=== PATIENT | male | born 1965 | race Caucasian/White ===

== ENCOUNTER → 2016-08-17 | Outpatient (CLI) | payer OTHER | LOC: PUL 08:36 | DX: R06.02 Shortness of breath (principal) ==

== ENCOUNTER → 2017-11-12 | Outpatient (CLI) | payer OTHER | LOC: CAT 08:08 | DX: I48.91 Unspecified atrial fibrillation (principal); J98.4 Other disorders of lung ==

== ENCOUNTER 2017-11-19 06:50 | Observation (INO) | payer OTHER ==
[~2017-11-19] VITALS: Ht 200.7 cm; Wt 88.5 kg
[2017-11-19] VITALS (7 sets, daily range): BP systolic 104–130; BP diastolic 65–70
--- NOTE | ~2017-11-19 | D ---
[facility] [place] [address] DISCHARGE SUMMARY Name: RENATO COHEN Room #: 210-P [facility] Jordyn Chavira#: [id number] Admission: 11/19/17 Attend Phys: Main Rivas MD Discharge: 11/20/17 Date of : 65 Report #: [id number] THIS REPORT FOR: //name// CC: Beau Rivas DATE OF SERVICE: 11/20/2017 FINAL DIAGNOSES: 1. Atrial fibrillation. 2. Status post atrial fibrillation ablation. 3. Bradycardia. HOSPITAL COURSE: Please see the original H and P for full details. The patient has a history of paroxysmal atrial fibrillation, maintained on flecainide therapy. He had frequent episodes of paroxysmal AFib, associated with fatigue and lightheadedness. He presented electively for an EP procedure. He underwent ablation of the atrial fibrillation by Dr. Main Rivas. He has remained stable overnight. Telemetry monitoring reveals sinus rhythm. He will be discharged home on flecainide and Pradaxa, which he was taking previously. He is scheduled to follow up with Dr. Rivas. <ELECTRONICALLY SIGNED> By: Jose Diallo MD 11/21/17 0854 [id number] [id number] Jose Diallo MD /nt
--- NOTE | ~2017-11-19 | P ---
[facility] [place] [address] PROCEDURE REPORT Name: RENATO COHEN Room #: 210-P [facility] M..#: [id number] Admission: 11/19/17 Attend Phys: Main Rivas MD Discharge: 11/20/17 Date of : 65 Report #: [id number] THIS REPORT FOR: //name// CC: Beau Rivas PREOPERATIVE DIAGNOSIS: Atrial fibrillation. POSTOPERATIVE DIAGNOSIS: Atrial fibrillation. HISTORY OF PRESENT ILLNESS: The patient is a 52-year-old with a history of recurrent atrial fibrillation, here for an ablation. PROCEDURES PERFORMED: 1. AFib ablation, CPT code 26255. 2. 3D mapping EP, CPT code 29036. 3. Intracardiac echo, CPT code 92456. ANESTHESIA: The patient underwent general anesthesia with no anesthesia related complications. DESCRIPTION OF PROCEDURE: The patient underwent informed consent. We discussed the details of the procedure including the risks, which include but not limited to bleeding, vascular damage, cardiac perforation as well as stroke or [place]. He understood these risks and is willing to proceed. The patient was brought to the EP Laboratory in a fasting and sedated state and prepped and draped in a sterile fashion. I injected lidocaine to the right groin region, obtained access to the right femoral vein x 3, placing an 8-Uzbek, 9-Uzbek and 7-Uzbek short sheath using the modified Seldinger technique. Next, under fluoroscopy, a decapolar catheter was placed into the coronary sinus. Of note, his coronary sinus was very vertical. Next, an intracardiac ultrasound camera was placed into the right atrium, and using CartoSound, we created a 3D geometry of the left atrium with evidence of two left and two right pulmonary veins. Of note, the patient had a very vertical heart and his left-sided veins were quite vertical in their takeoffs. The CartoSound images were merged with the cardiac CT scan images. Next, the patient was systemically heparinized, and a transseptal was performed using an SL1 sheath and a [place] needle. Of note, the patient did have a thick interatrial septum, but I was able to perform a transseptal along the lower part of the septum. It had a mid location, not as anterior as I would like, but was still satisfactory for the procedure. I was able to cross the interatrial septum using my SL1 sheath, which was guided over the guidewire. I then placed a Lasso into the left atrium and obtained baseline measurements of all four pulmonary veins. Next, I exchanged the SL1 sheath for the cryo sheath, and this transitioned through the septum nicely. At baseline, the patient was in sinus rhythm with a sinus cycle length of 1250 milliseconds, [place] interval [address] [address] PROCEDURE REPORT Name: RENATO COHEN Room #: 210-P LUCINA Chavira#: [id number] Admission: 11/19/17 Attend Phys: Main Rivas MD Discharge: 11/20/17 Date of : 65 Report #: [id number] milliseconds, QRS duration 95 milliseconds and QT interval 445 milliseconds. Next, the cryoballoon was placed into the left atrium, and the veins were isolated. The left superior vein underwent one 4 minute freeze. This vein isolated within 53 seconds. The left inferior pulmonary vein required two 4-minute freezes. The vein isolated within 20 seconds of the second freeze. The right superior pulmonary vein required 3 freezes. I performed a 4-minute freeze and then 145 second freeze. I then the sheath more and performed another freeze of 120 seconds duration. During this third freeze, the vein isolated within 20 seconds. I then turned my attention to the right inferior pulmonary vein. This vein isolated within 50 seconds, and I performed a single 240 second freeze. All veins were reinterrogated, and there was evidence of entrance and exit block. Of note, there was a large far field atrial signals in all of these veins, but they were clearly isolated with entrance and exit block. As such, the cryo balloon and sheath were pulled to the right atrium. Using intracardiac ultrasound, there was no evidence of pericardial effusion. The patient received systemic protamine and once ACT was within acceptable range, catheters and sheaths were pulled. Hemostasis obtained and the patient awoke neurologically and hemodynamically intact. Post-ablation, the patient was in sinus rhythm with a sinus cycle length of 710 milliseconds, [place] interval 155 milliseconds, QRS duration 75 milliseconds and QT interval 380 milliseconds. CONCLUSIONS: Successful AFib ablation with isolation of the 4 pulmonary veins. <ELECTRONICALLY SIGNED> By: Main Rivas MD 11/22/17 1454 1116 1521 Main Rivas MD /nt
[2017-11-19] MEDS ORDERED: FLECAINIDE ACET50 M1 PO (07:19)
[2017-11-19] MEDS ORDERED: ASPIR 8181 MG PO (07:19)
[2017-11-19] MEDS ORDERED: PRADAXA75 MG PO (07:20)
[2017-11-19 07:31] LABS: ABSOLUTE NEUTROPHILS 1.7 thou/uL (1.4-8.2); EOSINOPHILS 2.3 % (0.0-3.0); HEMATOCRIT 41.1 % (42.0-52.0); HEMOGLOBIN 14.3 gm/dL (14.0-18.0); LYMPHOCYTES 37.7 % (24.0-44.0); MCH 33.3 pg (26.0-34.0); MCHC 34.7 g/dL (28.0-37.0); MCV 95.9 fL (80.0-100.0); MONOCYTES 9.3 % (1.0-8.0); PLATELET COUNT 157 thou/uL (150-400); POLYS 49.7 % (36.0-66.0); RBC 4.29 mil/uL (4.50-6.00); RDW 12.5 % (10.5-14.5); WBC 3.3 thou/uL (4.0-11.0)
[2017-11-19 07:40] LABS: CALCIUM 8.6 mg/dL (8.5-10.1); POTASSIUM 3.8 mmol/L (3.5-5.1)
[2017-11-19 07:46] LABS: ALBUMIN 3.8 g/dL (3.4-5.0); TOTAL BILIRUBIN 0.5 mg/dL (<0.1-1.0); TOTAL PROTEIN 7.1 g/dL (6.4-8.2)
[2017-11-19 07:47] LABS: APTT 29.6 Seconds (24.5-32.8); INR 1.2
[2017-11-20 04:33] VITALS: BP 152/94; BP 92/60
[2017-11-20 07:59] VITALS: BP 107/66
[2017-11-20 10:12] VITALS: BP 107/66
== END 2017-11-20 12:46 | disposition home or self-care (01) ==
LOC: CATH 06:50 → 2N 06:52 → CATH 10:29 → 2N 11-20 12:46
PROVIDERS: Internal Medicine Cardiovascular Disease
DX: I48.0 Paroxysmal atrial fibrillation (principal); R42 Dizziness and giddiness; R53.83 Other fatigue; E78.5 Hyperlipidemia, unspecified; Z98.890 Other specified postprocedural states; R00.1 Bradycardia, unspecified
CPT/HCPCS: 62110; 62900; 65020; 65040; 70005

== ENCOUNTER → 2017-12-02 | Outpatient (CLI) | payer OTHER ==
[~2017-12-02] VITALS: Ht 200.7 cm; Wt 90.7 kg
[~2017-12-02] MED LIST: ASPIR 8181 MG PO; FLECAINIDE ACET50 M1 PO; PRADAXA75 MG PO
--- NOTE | ~2017-12-02 | P ---
[facility] [place] [address] PROCEDURE REPORT Name: RENATO COHEN [facility] [id number] Admission: 12/02/17 Attend Phys: Main Rivas MD Discharge: Date of : 65 Report #: [id number] THIS REPORT FOR: //name// CC: Beau Rivas DATE OF SERVICE: 12/02/2017 PREOPERATIVE DIAGNOSIS: Typical atrial flutter. POSTOPERATIVE DIAGNOSIS: Typical atrial flutter. DESCRIPTION OF PROCEDURE: The patient underwent informed consent. He was sedated by the anesthesiology service. Once sedated, he underwent 150 joules synchronized cardioversion with yazidism of sinus rhythm. There were no complications. CONCLUSIONS: Successful cardioversion from typical atrial flutter to sinus rhythm. By: 1536 26 Main Rivas MD /nt
--- NOTE | ~2017-12-02 | EKG ---
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 Epiphany EpiphMD sandeep /EPI
--- NOTE | ~2017-12-02 | EKG ---
[facility] [place] [address] ELECTROCARDIOGRAM REPORT Name: RENATO COHEN Room #: [facility]#: [id number] Admission: 12/02/17 Attend Phys: Main Riavs MD Discharge: Date of : 65 Report #: [id number] THIS REPORT FOR: //name// [facility] Test Date: 2017-12-02 Test Time: 13:52:24 Pat Name: RENATO COHEN Department: Room: Gender: Cartoon Animator: Franklin VAZQUEZ : 1965 Requested By: Mani Rivas Order Number: [id number] MD: Measurements Intervals [place] Rate: 67 P: 78 OR: 181 QRS: -13 QRSD: 98 T: 43 QT: 416 QTc: 439 Interpretive Statements Sinus rhythm ST elev, probable normal early repol pattern No previous ECG available for comparison [email or web address] By: 1352 1352 [facility] EpiphMD sandeep /EPI
[2017-12-02 11:24] LABS: ABSOLUTE NEUTROPHILS 2.7 thou/uL (1.4-8.2); BASOPHILS 0.6 % (0.0-2.0); EOSINOPHILS 0.8 % (0.0-3.0); HEMATOCRIT 44.3 % (42.0-52.0); HEMOGLOBIN 15.3 gm/dL (14.0-18.0); LYMPHOCYTES 30.7 % (24.0-44.0); MCH 33.4 pg (26.0-34.0); MCHC 34.4 g/dL (28.0-37.0); PLATELET COUNT 191 thou/uL (150-400); POLYS 59.9 % (36.0-66.0); RBC 4.57 mil/uL (4.50-6.00); RDW 12.9 % (10.5-14.5); WBC 4.5 thou/uL (4.0-11.0)
[2017-12-02 11:31] VITALS: BP 103/72
[2017-12-02 11:34] LABS: INR 1.4; PROTIME 14.7 Seconds (9.3-11.4)
[2017-12-02 11:35] LABS: CALCIUM 8.7 mg/dL (8.5-10.1); CREATININE 1.1 mg/dL (0.7-1.3); POTASSIUM 4.6 mmol/L (3.5-5.1)
[2017-12-02 11:49] LABS: TOTAL BILIRUBIN 0.6 mg/dL (<0.1-1.0); TOTAL PROTEIN 7.6 g/dL (6.4-8.2)
== END | disposition home or self-care (01) ==
LOC: CATH 07:31
PROVIDERS: Internal Medicine Cardiovascular Disease
DX: I48.3 Typical atrial flutter (principal); I48.91 Unspecified atrial fibrillation; E78.5 Hyperlipidemia, unspecified; I35.1 Nonrheumatic aortic (valve) insufficiency; Z79.01 Long term (current) use of anticoagulants; Z98.890 Other specified postprocedural states
CPT/HCPCS: 62110; 62900